=== PATIENT | female | born 1975 | race Caucasian/White ===

== ENCOUNTER → 2020-08-13 | Outpatient (CLI) | payer OTHER ==
--- NOTE | 2020-08-24 19:48 | CE ---
CARDIAC ELECTROPHYSIOLOGY REPORT DATE OF SERVICE: 08/13/2020 PROCEDURE: A 24-hour DCG. INDICATION: Palpitations. The patient was monitored for 24 hours. The baseline rhythm appeared to be sinus with a minimum heart rate of 50, max 126 and average of 74 beats per minute. Ventricular ectopic events were not seen. Supraventricular ectopic events were very rare. The patient did not have any evidence of any sinus pause or sinus arrest. No evidence of any advanced AV block. The patient reported no symptoms. CONCLUSION: 1. Sinus rhythm as a baseline mechanism. 2. No evidence of any ventricular ectopic events. 3. Rare supraventricular ectopic events. 4. No evidence of any sinus pause or sinus arrest. 5. No evidence of any advanced AV block. 6. The patient reported no symptoms. MMODL / IJN: [id number] /
== END | disposition home or self-care (01) ==
LOC: RADECHMAIN 12:17
PROVIDERS: ATTEND Family Medicine
DX: R00.2 Palpitations (principal)
CPT/HCPCS: 93225; 93226

== ENCOUNTER → 2020-08-31 | Outpatient (CLI) | payer OTHER ==
--- NOTE | 2020-09-04 10:50 | MM ---
Reason for exam: screening (asymptomatic). History: Patient is postmenopausal and had first child at age 33. Family history of breast cancer in maternal grandmother at age 85. Taking hormonal contraceptives for 1 year beginning at age 44. Physical Findings: A clinical breast exam by your physician is recommended on an annual basis and results should be correlated with mammographic findings. MG Screening Mammo w CAD Bilateral CC and MLO view(s) were taken. No prior studies available for comparison. The breast tissue is heterogeneously dense. This may lower the sensitivity of mammography. Inferior mole on the left. Small grouped calcifications anterior right breast. Oval nodule inferior left MLO view. ASSESSMENT: Incomplete: need additional imaging evaluation, BI-RAD 0 RECOMMENDATION: Special view mammogram of both breasts. (right magnification, left lateral) If lesion persists on supplemental views, image directed ultrasound is recommended. [facility] will attempt to contact patient to return for supplemental views and ultrasound if indicated.
== END | disposition home or self-care (01) ==
LOC: RADMAMWWP 10:59
PROVIDERS: ATTEND Obstetrics & Gynecology
DX: Z12.31 Encounter for screening mammogram for malignant neoplasm of breast (principal)
CPT/HCPCS: 77067

== ENCOUNTER → 2020-09-10 | Outpatient (CLI) | payer OTHER ==
--- NOTE | 2020-09-11 12:25 | MM ---
Reason for exam: additional evaluation requested from abnormal screening. Last mammogram was performed less than 1 month ago. History: Patient is postmenopausal and had first child at age 33. Family history of breast cancer in maternal grandmother at age 85. Taking hormonal contraceptives for 1 year beginning at age 44. Physical Findings: Nurse did not find any significant physical abnormalities on exam. MG Work Up Mamm w CAD BILAT Bilateral CC with magnification, ML with magnification, and ML view(s) were taken. Prior study comparison: August 31, 2020, bilateral MG screening mammo w CAD. The breast tissue is heterogeneously dense. This may lower the sensitivity of mammography. Right breast faint grouped punctate calcifications anterior upper outer quadrant, biopsy recommended. Left 1.4cm isodense circumscribed mass inferiorly. Obscured by dense tissues on the CC view. These results were verbally communicated with the patient and result sheet given to the patient on 09/10/20. ASSESSMENT: Incomplete: need additional imaging evaluation, BI-RAD 0 RECOMMENDATION: Ultrasound of the left breast. (inferior half)
--- NOTE | 2020-09-11 12:29 | USB ---
Reason for exam: additional evaluation requested from abnormal screening. History: Patient is postmenopausal and had first child at age 33. Family history of breast cancer in maternal grandmother at age 85. Taking hormonal contraceptives for 1 year beginning at age 44. US Breast Workup Limited LT Technologist: Verónicatavo Hartmannch Left limited breast ultrasound including focal area of concern, retroareolar and axilla demonstrates a 1.1 x 0.7 x 0.7cm cystic cluster at 3 o'clock, a 0.5 x 0.4 x 0.2cm oval, cystic lesion at 3 o'clock, a 1.5 x 1.3 x 0.5cm oval, cystic lesion at 5 o'clock, a 0.4 x 0.4 x 0.3cm circular, cystic lesion at 7 o'clock, a 0.8 x 0.6 x 0.4cm oval, cystic lesion at 8 o'clock and a 0.9 x 0.6 x 0.4cm oval, cystic lesion at 8 o'clock. Multiple cystic lesions visualized. Scanned 3-9 o'clock. These results were verbally communicated with the patient and result sheet given to the patient on 09/10/20. ASSESSMENT: Suspicious, BI-RAD 4 RECOMMENDATION: Stereotactic core biopsy. (right breast biopsy, calcifications) Called Dr. Lang's office with mammographic findings and has scheduled an appointment for the patient for 09/27/20 at 10:[address] Rothman. Biopsy scheduled for 10/01/20 at 8:00. PRELIMINARY REPORT CALLED AND FAXED TO DR. ROTHMAN ON 09/11/20.
== END | disposition home or self-care (01) ==
LOC: RADMAMWWP 09:39
PROVIDERS: ATTEND Obstetrics & Gynecology
DX: R92.8 Other abnormal and inconclusive findings on diagnostic imaging of breast (principal)
CPT/HCPCS: 77066

== ENCOUNTER → 2020-09-27 | Outpatient (CLI) | payer OTHER ==
[2020-09-27 10:41] VITALS: BP 129/86; PULSE 78; RESP 18; TEMP 98.2
--- NOTE | 2020-09-27 11:19 | P.GSHP ---
History of Present Illness H&P Date: 09/27/20 Chief Complaint: Microcalcifications of concern in the right breast Gabbie is a 45 year old white female seen in consultation for Dr. Beltran with a complaint breast mammogram revealing microcalcifications of concern for which stereotactic core biopsy has been recommended. The patient underwent a bilateral mammogram on 08/1620. Following this additional views of both breasts were recommended. In the right breast she was noted to have faint grouped punctate calcifications and biopsy was recommended. In the left breast a 1.4 cm isodense circumscribed mass was noted. She subsequently underwent a left breast ultrasound which revealed polycystic disease. These films have been reviewed with Dr. Avelar from radiology and 6 month ultrasound follow-up of the left breast is recommended. The breast stereotactic core biopsy was recommended. The patient does not feel any lumps masses or nodules of concern in either breast. She is not concerned about any pain or nipple discharge in either breast. She has never had a breast biopsy in the past. She has not had any recent trauma or infection of the breast. This is her first mammogram in approximately 20 years. Caffeine: 2 cups of coffee per day Nicotine: Negative Theophylline: Occasionally Family history: maternal grandmother: breast cancer paternal grandfather: prostate cancer Hormonal History: menarche:15 , breast fed: yes, age at first : 33 periods:irregular, has an nexplanon -etonogestrel implant in arm for bleeding (for 1 year) BCP: 6 years, had a tubal in 2010 hormones: as above Surgical History: 1. 2 Medical history: depression Social history: Nicotine: Negative Alcohol: seldom Drugs: Marijuana seldom - Constitutional Constitutional: Denies chills, Denies fever - EENT Eyes: denies blurred vision, denies pain Ears: deny: decreased hearing, tinnitus Ears, nose, mouth and throat: Denies headache, Denies sore throat - Breasts Breasts: bilateral: as per HPI - Cardiovascular Cardiovascular: Denies chest pain, Denies shortness of breath - Respiratory Comment: bronchitis in past Respiratory: Denies cough, Denies 7 - Gastrointestinal Gastrointestinal: Denies abdominal pain, Denies diarrhea, Denies nausea, Denies vomiting - Genitourinary (Female) Genitourinary: Denies dysuria, Denies hematuria - Menstruation Menstruation: Reports cycle variable - Musculoskeletal Musculoskeletal: Denies myalgias - Integumentary Integumentary: Denies pruritus, Denies rash - Neurological Neurological: Denies numbness, Denies weakness - Psychiatric Psychiatric: Reports anxiety, Reports depression - Endocrine Comment: weight gain since Nexplanon Endocrine: Reports weight change, Denies fatigue - Hematologic/Lymphatic Comment: none - Allergic/Immunologic Allergic/Immunologic: Reports seasonal allergies Past Medical History History of Any Multi-Drug Resistant Organisms: None Reported Smoking Status: Never smoker Medications and Allergies Home Medications Medication Instructions Recorded Confirmed Type FLUoxetine HCL [PROzac] 20 mg PO DAILY 09/19/20 09/27/20 History Etonogestrel [Nexplanon] 68 mg SQ DAILY 09/27/20 09/27/20 History Allergies Allergy/AdvReac Type Severity Reaction Status Date / Time Penicillins Allergy Rash/Hives Verified 09/19/20 12:44 Surgical - Exam Vital Signs Temp Pulse Resp BP Pulse Ox 98.2 F 78 18 129/86 96 09/27/20 10:37 09/27/20 10:37 09/27/20 10:37 09/27/20 10:37 09/27/20 10:37 BMI 43.1 - General obese - Eyes normal ocular movement - ENT no hearing loss, no congestion - Neck trachea midline - Respiratory normal expansion, normal respiratory effort, clear to auscultation - Cardiovascular Rhythm: regular Heart Sounds: normal: S1, S2 - Abdomen Abdomen: soft, non tender, no guarding, no rigid, no rebound - Integumentary normal turgor - Neurologic no disoriented, no combative - Musculoskeletal normal gait - Psychiatric oriented to time, oriented to person, oriented to place, speech is normal, memory intact Breast exam: BRA 40DDD inspection: grade 3 ptosis bilateral palpation: Breasts: Multiple position her exam fibrocystic changes, no dominant masses or nodules of concern Right axilla: No adenopathy of concern Left breast: Fibrocystic changes multiple positional exam Left axilla: No adenopathy of concern Results Mammogram and ultrasound reviewed with Dr. Avelar Assessment and Plan Assessment: Impression: 1. Right breast microcalcifications of concern on recent screening mammogram 2. Left breast cystic changes repeat left breast ultrasound in 6 months 3. depression Plan: 1. Stereotactic core biopsy right breast 2. Left breast repeat ultrasound in 6 months 3. Medical management of depression Risks and benefits of surgery to core biopsy discussed with the patient. Risks include but are not limited to bleeding, infection, reaction to the anesthetic. There is a possibility that we would not be able to see the spot that was not adequately sampled in which case it could be recommended that an open biopsy be performed. Alternatives such as loss awaiting open biopsy discussed but not recommended. Patient understands and wishes to proceed. CC: DR. Beltran encounter 30 minutes, > 50% of time in planning and counselling
== END | disposition home or self-care (01) ==
LOC: WWCWWP 09:48
PROVIDERS: ATTEND Surgery
DX: Z53.9 Procedure and treatment not carried out, unspecified reason (principal)

== ENCOUNTER → 2020-10-01 | Day surgery (SDC) | payer OTHER ==
[2020-10-01 07:26] VITALS: PULSE 73; RESP 16
[2020-10-01 08:31] VITALS: BP 118/79; TEMP 98.3
--- NOTE | 2020-10-01 08:52 | MM ---
EXAMINATION TYPE: MG stereo VAD BX RT DATE OF EXAM: 10/01/2020 COMPARISON: 09/10/2020 CLINICAL HISTORY: Request for core biopsy right breast calcifications TECHNIQUE: Stereotactic guided core biopsy of right breast. FINDINGS: The procedure of stereotactic guided core biopsy was explained to the patient. Benefits, alternatives, and risks were discussed. An informed consent was then obtained. [facility] was chosen. Shortness pathway was lateral approach. I performed the localization, then Dr. Elkins performed the remainder of the procedure. A vacuum assisted biopsy gun was used to obtain multiple core samples. The patient tolerated the procedure well without any immediate complication. The patient was kept in the radiology department for short stay after the procedure and then discharged home in stable condition. Targeted calcifications are identified in specimen mammogram. Post biopsy mammogram shows the clip to appear in satisfactory position relative to the targeted area of concern on the preprocedure images. IMPRESSION: SUCCESSFUL, UNCOMPLICATED STEREOTACTIC GUIDED CORE BIOPSY OF AREA OF CONCERN IN THE right BREAST, FULL PATHOLOGY RESULTS TO FOLLOW. Pathology Results: Benign RIGHT BREAST, STEREOTACTIC CORE BIOPSY: Fibrocystic changes including cysts with calcifications, fibrosis, apocrine metaplasia, columnar cell change and adenosis. Recommendation Follow up mammogram of the right breast in 6 months. LUCIANO
== END ==
LOC: RADMAMWWP 07:07
PROVIDERS: ATTEND Surgery
DX: N60.11 Diffuse cystic mastopathy of right breast (principal); N60.81 Other benign mammary dysplasias of right breast; R92.1 Mammographic calcification found on diagnostic imaging of breast; R92.8 Other abnormal and inconclusive findings on diagnostic imaging of breast; Z88.0 Allergy status to penicillin
CPT/HCPCS: 88305; 19081; A4648; J2001

== ENCOUNTER → 2020-10-05 | Outpatient (CLI) | payer OTHER ==
[2020-10-05 13:11] VITALS: BP 126/80; PULSE 101; RESP 18; TEMP 98.8
--- NOTE | 2020-10-05 13:38 | P.PN ---
Subjective Progress Note Date: 10/05/20 Principal diagnosis: stero biopsy results Gabbie is a 45 year old female status post right breast stero biopsy on 10-01-20. The results were benign with cyst. She has no complaints related to the biopsy. Objective - Vital Signs Vital signs: Vital Signs Temp 98.8 F 10/05/20 13:09 Pulse 101 H 10/05/20 13:09 Resp 18 10/05/20 13:09 BP 126/80 10/05/20 13:09 Pulse Ox 98 10/05/20 13:09 Intake & Output 10/04/20 10/05/20 10/05/20 18:59 06:59 18:59 Weight 124.738 kg - Exam BMI 43.1 - Constitutional General appearance: Present: obese - EENT ENT: Present: hearing grossly normal - Neck Neck: Present: normal ROM - Respiratory Respiratory: bilateral: CTA - Cardiovascular Rhythm: regular Heart sounds: normal: S1, S2 - Integumentary Integumentary Comment(s): Mild ecchymosis at biopsy site No evidence of hematoma or infection Assessment and Plan Assessment: Impression: 1. Right breast stereotactic core biopsy [id number] pathology benign Plan: 1. Right breast mammogram in 6 months with physician exam 2. left breast ultrasound in 6 months to follow cyst CC: Dr. Beltran encounter 10 minutes, > 50% of time in planning and counselling
== END | disposition home or self-care (01) ==
LOC: WWCWWP 12:59
PROVIDERS: ATTEND Surgery
DX: Z53.9 Procedure and treatment not carried out, unspecified reason (principal)

== ENCOUNTER → 2020-11-20 | Outpatient (CLI) | payer OTHER ==
--- NOTE | 2020-11-20 21:07 | CONS ---
CONSULTATION REASON FOR CONSULTATION: Sleep apnea. This is a 45-year-old female patient coming to see me for excessive fatigue and tiredness and sleepiness during the day. 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 She takes care of a 9-year-old and 12-year-old. The children currently are undergoing virtual learning and they not going to school. This has affected the whole sleep dynamics and schedule. 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 She typically works on Mondays and Wednesdays. Post work, the patient has to stay with her children and she is sometimes able to sleep a few hours. Yet for most days she is unable to have an effective 7-8 hours of sleep. On her days off, she tries to sleep longer and she tries to establish sleep between 10 p.m. and 6:30 a.m. in the morning. At times she is having difficulties in falling asleep with her irregular sleep schedule. Whenever she sleeps, she snores and she stops breathing, and this has been reported by her children. She occasionally wakes up gasping for air and she wakes up with a dry mouth. She is getting very tired and fatigued. She is gaining weight as a result of her poor sleep quality and she is up by around 40 pounds over these past few years. Another issue is watching videos on her phone and she had watches movies in her bedroom prior to going to sleep, which probably delays her sleep and causes difficulties in sleep initiation. She sleeps in different body positions. No sleep paralysis. No hallucinations. No cataplexy. PAST MEDICAL HISTORY: 1. History of anxiety, currently on Prozac. 2. Obesity. PAST SURGICAL HISTORY: Past surgical history includes and tubal ligation. DRUG ALLERGIES: PENICILLINS. OUTPATIENT MEDICATION: Outpatient medication includes Prozac 20 mg p.o. daily. SOCIAL HISTORY: The patient is a nonsmoker. No history of alcoholism. No history of IV drugs. FAMILY HISTORY: Hypertension and angina in her father, hyperlipidemia in both parents, asthma in her mother, arthritis in her mother, sleep apnea in her father and diabetes in her father. Thyroid disease in her mother and mental illnesses in her father. REVIEW OF SYSTEMS: Fourteen-point review of systems was done. Positive findings are all mentioned above in the history of present illness. PHYSICAL EXAMINATION: BP is 154/100, pulse is 90, respirations 16, temperature 97.4, saturation 98% on room air. Height is 5 feet 8 inches, weight is 281. Neck size 16 inches. BMI is 42.7. GENERAL APPEARANCE: Obese, calm, comfortable. HEAD: Atraumatic, normocephalic. NECK: Supple. No JVD. No goiter or neck masses. Mallampati class II. Slight overbite. LUNGS: Clear to auscultation. HEART: Heart sounds are regular rate and rhythm. Normal S1, S2. No S3, S4. No murmurs. ABDOMEN: Soft, nontender. No organomegaly. EXTREMITIES: No edema. No cyanosis or clubbing. IMPRESSION: 1. Possible obstructive sleep apnea based on history of snoring, witnessed apneas and chronic fatigue and sleepiness. The patient has furthermore gained around 40 pounds over the past years and her current BMI is 42.7. Obstructive sleep apnea is likely. 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 2. Obesity with a BMI of 42.7. 3. History of chronic anxiety, on Prozac. PLAN: 1. Encourage weight loss. 2. Regulate sleep-wake cycle. 3. I talked to this patient about sleep hygiene measures. The patient needs to eliminate watching movies on her phone at nighttime, which will act as a stimulant, stimulating her brain and preventing her from initiating sleep. This along with other sleep hygiene measures should improve her sleep quality in general. 4. Will ask the patient to try to take at least 5 hours of sleep on her days off after she comes back from work. Obviously she is sleep-deprived, and this is contributing to her chronic fatigue and tiredness and sleepiness in addition to her weight gain. 5. Proceed with a screening polysomnogram to evaluate this patient for sleep apnea and treat accordingly. MMODL / IJN: [id number] / MTDD
== END | disposition home or self-care (01) ==
LOC: SLEEP 15:26
PROVIDERS: ATTEND Internal Medicine Critical Care Medicine
DX: R06.83 Snoring (principal); E66.9 Obesity, unspecified; Z68.41 Body mass index [BMI] 40.0-44.9, adult; Z86.59 Personal history of other mental and behavioral disorders; Z88.0 Allergy status to penicillin; Z79.899 Other long term (current) drug therapy
CPT/HCPCS: 99211

== ENCOUNTER → 2021-03-14 | Outpatient (CLI) | payer OTHER ==
--- NOTE | 2021-03-15 08:43 | MM ---
Reason for exam: follow-up at short interval from prior study. Last mammogram was performed 6 months ago. History: Patient had first child at age 33. Family history of breast cancer in maternal grandmother at age 85. Benign MG stereo VAD BX RT of the right breast, October 01, 2020. Physical Findings: Nurse did not find any significant physical abnormalities on exam. MG Diagnostic Mammo RT w CAD CC, MLO, LM, spot compression CC, and spot compression MLO view(s) were taken of the right breast. Prior study comparison: September 10, 2020, bilateral MG work up mamm w CAD BILAT. August 31, 2020, bilateral MG screening mammo w CAD. The breast tissue is heterogeneously dense. This may lower the sensitivity of mammography. Finding #1: There is a 7 mm equal density (isodense), lobulated mass in the upper outer quadrant of the right breast. Finding #2: There are typically benign calcifications in the right breast. Previous mammotome biopsy in the right breast. These results were verbally communicated with the patient and result sheet given to the patient on 03/14/21. ASSESSMENT: Incomplete: need additional imaging evaluation, BI-RAD 0 RECOMMENDATION: Ultrasound of the right breast.
--- NOTE | 2021-03-15 08:57 | USB ---
Reason for exam: additional evaluation requested from abnormal screening. History: Patient had first child at age 33. Family history of breast cancer in maternal grandmother at age 85. Benign MG stereo VAD BX RT of the right breast, October 01, 2020. US Breast Limited BILAT Right limited breast ultrasound including focal area of concern, retroareolar and axilla demonstrates several oval, cystic lesions measuring 4 x 4 x 7mm at 10 o'clock, 6 x 4 x 6mm at 11 o'clock, 8mm at the posterior nipple and 5mm at the posterior nipple. Left limited breast ultrasound including focal area of concern, retroareolar and axilla demonstrates a 9 x 4 x 10mm oval, cystic cluster at 3 o'clock and 15 x 6 x 13mm at 5 o'clock. These results were verbally communicated with the patient and result sheet given to the patient on 03/14/21. ASSESSMENT: Probably benign, BI-RAD 3 RECOMMENDATION: Follow-up diagnostic mammogram of both breasts in 6 months.
== END | disposition home or self-care (01) ==
LOC: RADMAMWWP 14:18
PROVIDERS: ATTEND Surgery
DX: R92.1 Mammographic calcification found on diagnostic imaging of breast (principal); Z80.3 Family history of malignant neoplasm of breast
CPT/HCPCS: 77065

== ENCOUNTER → 2021-04-19 | Outpatient (CLI) | payer OTHER ==
--- NOTE | 2021-04-19 11:28 | XR ---
Right knee HISTORY: Pain 3 views of the right knee There is marginal spurring of the medial compartment greater than lateral, there is some mild spurrin g at the patellofemoral joint. Alignment and bone mineralization are maintained. Joint spaces are aisha ntained. Probable enthesophyte present at the insertion of the quadriceps tendon. No evident joint ef fusion. IMPRESSION: Osteoarthritis.
== END | disposition home or self-care (01) ==
LOC: RADXRMAIN 08:02
PROVIDERS: ATTEND Family Medicine
DX: M17.11 Unilateral primary osteoarthritis, right knee (principal)